=== PATIENT | female | born 1980 | race Caucasian/White ===

== ENCOUNTER 2017-07-02 22:29 | Emergency (ER) | payer OTHER ==
[~2017-07-02] VITALS: Ht 160 cm; Wt 59.0 kg
[2017-07-02 22:40] VITALS: BP 155/99
--- NOTE | 2017-07-03 00:04 | NUR ---
PATIENT LEFT WITHOUT BEING SEEN BY DR. GILLILAND. NO FURTHER CARE PROVIDED FOR PATIENT.
== END 2017-07-03 00:04 | disposition left against medical advice (07) ==
LOC: MED 22:29
DX: R51 Headache (principal); Z53.21 Procedure and treatment not carried out due to patient leaving prior to being seen by health care provider

== ENCOUNTER 2021-10-16 03:07 | Emergency (ER) | payer OTHER ==
[~2021-10-16] VITALS: Ht 160 cm; Wt 63.5 kg
[2021-10-16 03:07] VITALS: BP 131/80
--- NOTE | 2021-10-16 03:07 | NUR ---
DUNG VELEZ. TAKEN TO CHAIR A
[2021-10-16] MEDS ORDERED: CEPH-588 PO (04:10)
[2021-10-16] MEDS ORDERED: SULF-59 PO (04:11)
[2021-10-16 04:23] VITALS: BP 131/80
--- NOTE | 2021-10-16 04:23 | NUR ---
Patient discharged with v/s stable. Written and verbal after care instructions given and explained. Patient alert, oriented and verbalized understanding of instructions. Police with in custody. All questions addressed prior to discharge. ID band removed. Patient advised to follow up with PMD. Rx of keflex and bactrim given. Patient educated on indication of medication including possible reaction and side effects. Opportunity to ask questions provided and answered.
== END 2021-10-16 04:23 ==
LOC: MED 03:07
DX: L03.114 Cellulitis of left upper limb (principal); F11.90 Opioid use, unspecified, uncomplicated; Z02.89 Encounter for other administrative examinations
CPT/HCPCS: 99284